=== PATIENT | male | born 1965 | race Caucasian/White ===

== ENCOUNTER 2021-08-09 10:39 | Emergency (ER) | payer BC ==
[2021-08-09] MEDS ORDERED: Ketorolac 30 MG/ML SDV IM ONE (11:12)
[2021-08-09] MEDS ORDERED: Ketorolac 30 MG/ML SDV ONE (11:43)
== END 2021-08-09 12:00 | disposition home or self-care (01) ==
LOC: LB.ED 10:39
DX: S46.002A Unspecified injury of muscle(s) and tendon(s) of the rotator cuff of left shoulder, initial encounter (principal); I25.2 Old myocardial infarction; Z88.0 Allergy status to penicillin; Z79.82 Long term (current) use of aspirin; Z79.899 Other long term (current) drug therapy; X50.0XXA Overexertion from strenuous movement or load, initial encounter; Y99.0 Civilian activity done for income or pay
CPT/HCPCS: 73030; 96372; 99283; J1885; 99282

== ENCOUNTER 2022-06-03 19:24 | Emergency (ER) | payer BC ==
[2022-06-03] MEDS: HYDROmorphone 2 MG/ML Syringe IVPUSH ONE ×2 (19:52→20:35)
[2022-06-03] MEDS: Ondansetron 4 MG/2 ML SDV IVPUSH ONE (19:55)
[2022-06-03] MEDS: Sodium Chloride 0.9% 1,000 ML IV ONE (20:01)
[2022-06-03] MEDS: Ondansetron 4 MG/2 ML SDV ONE (20:02)
[2022-06-03] MEDS: HYDROmorphone 2 MG/ML Syringe ONE (20:03)
[2022-06-03] MEDS: Ketorolac 30 MG/ML SDV IVPUSH ONE (20:22)
[2022-06-03] MEDS: Ketorolac 30 MG/ML SDV ONE (20:51)
[2022-06-03] MEDS: Tamsulosin 0.4 MG Cap.ER PO ONE (21:07)
[2022-06-03] MEDS ORDERED: Acetaminophen/oxyCODONE 325-5 MG Tab ONE (23:15)
[2022-06-03 23:30] VITALS: BP 125/78; PULSE 65
[2022-06-04] MEDS: Tamsulosin 0.4 MG Cap.ER ONE (09:26)
== END 2022-06-03 21:30 | disposition home or self-care (01) ==
LOC: LB.ED 19:24
DX: N13.2 Hydronephrosis with renal and ureteral calculous obstruction (principal); E78.00 Pure hypercholesterolemia, unspecified; I10 Essential (primary) hypertension; I25.2 Old myocardial infarction; Z88.0 Allergy status to penicillin; Z79.899 Other long term (current) drug therapy
CPT/HCPCS: 36415; 74176; 80053; 83690; 85025; 96361; 96374; 96375; 96376; 99284-25; A9270-GY; J1170; J1885; J2405; J7030

== ENCOUNTER 2023-03-05 09:24 | Emergency (ER) | payer OTHER ==
[2023-03-05] MEDS ORDERED: Sodium Chloride 0.9% 10 ML Syringe FLUSH PRN (09:33)
[2023-03-05] MEDS ORDERED: Morphine 2 MG/ML SYRINGE IVPUSH ONE ×2 (09:33→09:54)
[2023-03-05] MEDS ORDERED: Ondansetron 4 MG/2 ML SDV IVPUSH ONE (09:50)
[2023-03-05] MEDS ORDERED: Morphine 2 MG/ML SYRINGE ONE (09:53)
[2023-03-05] MEDS ORDERED: diphenhydrAMINE 50 MG/ML SDV IVPUSH ONE (09:56)
[2023-03-05] MEDS ORDERED: diphenhydrAMINE 50 MG/ML SDV ONE (09:57)
[2023-03-05] MEDS ORDERED: Midazolam 1 MG/ML 2 ML SDV ONE (10:02)
[2023-03-05] MEDS ORDERED: Midazolam 1 MG/ML 10 ML MDV IVPUSH ONE (10:09)
[2023-03-05] MEDS ORDERED: Ketorolac 30 MG/ML SDV ONE (10:30)
[2023-03-05] MEDS ORDERED: Ketorolac 30 MG/ML SDV IVPUSH ONE (10:30)
== END 2023-03-05 10:45 | disposition home or self-care (01) ==
LOC: LB.ED 09:24
DX: S43.005A Unspecified dislocation of left shoulder joint, initial encounter (principal); I10 Essential (primary) hypertension; E78.00 Pure hypercholesterolemia, unspecified; I25.2 Old myocardial infarction; Z95.5 Presence of coronary angioplasty implant and graft; Z88.0 Allergy status to penicillin; W01.0XXA Fall on same level from slipping, tripping and stumbling without subsequent striking against object, initial encounter; Z79.899 Other long term (current) drug therapy
CPT/HCPCS: 23650; 73030-LT; 96374; 96375; 99284-25; J1200; J1885; J2250; J2270; J2405

== ENCOUNTER 2024-11-12 19:40 | Emergency (ER) | payer OTHER ==
[2024-11-12] MEDS ORDERED: Sodium Chloride 0.9% 10 ML Syringe FLUSH PRN (20:39)
[2024-11-12 20:55] LABS: MEAN PLATELET VOLUME 9.0 fL (6.0-10.0); PLATELET COUNT,PLT 250.0 K/uL (150-400); RED BLOOD CELL COUNT 5.49 M/uL (4.50-6.50); RED CELL DISTRIBUTION WIDTH 13.4 % (11.0-16.0); WHITE BLOOD CELL COUNT,WBC 8.0 K/uL (4.0-11.0)
[2024-11-12 21:34] LABS: A/G RATIO 1.1 (0.8-2.0); ALANINE AMINOTRANSFERASE,ALT 60.0 U/L (12-78); ASPARTATE AMNIOTRANSFERASE,AST 30.0 U/L (15-37); BILIRUBIN TOTAL 0.7 mg/dL (0.0-1.0); BLOOD UREA NITROGEN,BUN 19.0 mg/dL (8-26); CARBON DIOXIDE,CO2 27.2 mmol/L (21.0-32.0); CHLORIDE,CL 105.0 mmol/L (98-107); CREATININE 1.05 mg/dL (0.70-1.30); EST CRCL DRUG DOSING (CG) 78.21 mL/min; ESTIMATED GFR 82.0 mL/min (>60); GLUCOSE RANDOM 95.0 mg/dL (74-100); POTASSIUM,K 3.9 mmol/L (3.5-5.1); PROTEIN TOTAL,TP 6.9 g/dL (6.4-8.2); SODIUM,NA 140.0 mmol/L (136-145); TROPONIN I HIGH SENSITIVITY 7.0 pg/ml (<=60.4)
[2024-11-12 21:45] LABS: APPEARANCE,URINE CLEAR (CLEAR); GLUCOSE,URINE NEGATIVE (NEGATIVE); OCCULT BLOOD,URINE NEGATIVE (NEGATIVE)
[2024-11-12] MEDS: Ketorolac 15 MG/ML SDV IM ONE (22:21)
[2024-11-16 15:01] LABS: BORRELIA SPECIES SOURCE Plasma; BORRELIA SPP DNA DETECTION PCR Not Detected
== END 2024-11-12 22:30 | disposition home or self-care (01) ==
LOC: LB.ED 19:40
DX: R10.12 Left upper quadrant pain (principal); R51.9 Headache, unspecified; M54.2 Cervicalgia; M25.519 Pain in unspecified shoulder; M54.9 Dorsalgia, unspecified; E78.00 Pure hypercholesterolemia, unspecified; I10 Essential (primary) hypertension; I25.2 Old myocardial infarction; I11.9 Hypertensive heart disease without heart failure; I51.9 Heart disease, unspecified; Z88.0 Allergy status to penicillin; Z95.1 Presence of aortocoronary bypass graft; Z79.899 Other long term (current) drug therapy; W57.XXXA Bitten or stung by nonvenomous insect and other nonvenomous arthropods, initial encounter
CPT/HCPCS: 36415; 71045; 80053; 81001; 83735; 84484; 85027; 85379; 86140; 87476; 93005; 96372; 99284; A9270-GY; J1885